=== PATIENT | female | born 1965 | race African-American/Black ===

== ENCOUNTER 2016-11-29 09:25 | Outpatient (CLI) | payer MEDICARE, OTHER ==
[2016-05-31 13:29] VITALS: BP 132/59
[2016-11-29 10:18] LABS: eGFR (African) > 60; eGFR (Non-African) > 60
== END 2016-11-29 09:35 ==
LOC: LAB 09:25
DX: Z79.899 Other long term (current) drug therapy (principal)
CPT/HCPCS: 36415; 80048; 80178; 84443

== ENCOUNTER 2016-12-19 10:52 | Outpatient (CLI) | payer MEDICARE, OTHER ==
[2016-05-31 13:29] VITALS: BP 132/59
== END 2016-12-19 10:53 ==
LOC: LAB 10:52
PROVIDERS: ATTEND Nurse Practitioner Family
DX: M10.9 Gout, unspecified (principal)
CPT/HCPCS: 36415; 84550

== ENCOUNTER 2017-01-19 09:51 | Emergency (ER) | payer MEDICARE, OTHER ==
[2017-01-19] MEDS ORDERED: KETOROLAC TROMETHAMINE 30 MG/1ML VIAL IVP ONE (10:27)
[2017-01-19] MEDS ORDERED: METOCLOPRAMIDE HCL 5 MG TABLET PO ONE (10:53)
[2017-01-19] MEDS ORDERED: HYOSCYAMINE SULFATE 0.125 MG TAB.SUBL SL ONE (10:55)
[2017-01-19] MEDS ORDERED: [UNRECOGNIZED DRUG - OTHER] PO ONE ×3 (10:56)
[2017-01-19] MEDS ORDERED: LIDOCAINE PO ONE ×3 (10:56)
[2017-01-19] MEDS ORDERED: MAGNESIUM HYDROXIDE PO ONE ×3 (10:56)
[2017-01-19] MEDS ORDERED: AL HYDROX PO ONE ×3 (10:56)
[2017-01-19] MEDS ORDERED: Lidocaine 2%Visc 15ml 20 MG/ML UDC ONE (10:59)
[2017-01-19] MEDS ORDERED: MAGNESIUM HYDROXIDE/AL HYDROX 30 ML UDC PO ONE (10:59)
[2017-01-19] MEDS ORDERED: diphenhydrAMINE HCL 25 MG TABLET PO ONE (11:01)
[2017-01-19 12:51] VITALS: BP 128/58
--- NOTE | 2017-01-19 13:24 | ED Physician Documentation ---
General Adult - HISTORIAN Historian: patient - HPI Stated Complaint: Sore Throat Chief Complaint: General Adult Additional Information: Had EGD 2 days ago. Ate a ham sandwich yesterday and feels like it's still stuck in her throat. Eating and drinking normally. No vomiting. No gagging. Onset: days ago (1) Timing: still present Severity: mild Modifying Factors: none Context: ate a ham sandwich Quality: moderate to patient but eating and drinking, no distress Location: throat Further Comments: no Last known Well Date: 01/16/17 Last Known Well Time: 00:00 - ROS CONST: no problems EYES/ENT: other (perceived feeling of something in throat) CVS/RESP: none GI/: none MS/SKIN/LYMPH: none NEURO/PSYCH: denies: headache, fainting, dizziness, tingling, numbness, difficulty walking, difficulty with speech, anxiety, depression - PAST HX Past History: other (pud, diverticulosis) Surgeries/Procedures: other (recent EGD and colonoscopy) Immunizations: referred to PCP Allergies/Adverse Reactions: Allergies Allergy/AdvReac Type Severity Reaction Status Date / Time Iodinated Contrast Media - Allergy Intermediate Face Verified 01/19/17 10:11 IV Dye Swelling [IV Dye, Iodine Containing Contrast ] Home Medications: Ambulatory Orders Medication Instructions Recorded Cholecalciferol [Vitamin D] 1,000 unit PO QD 03/01/14 Duloxetine HCl [Cymbalta] 60 mg PO AM 03/01/14 Fluticasone/Salmeterol [Advair 1 each INH BID 03/01/14 250-50 Diskus] Lamotrigine [Lamictal] 200 mg PO BID 03/01/14 [place] Carbonate [Lithobid] 300 mg PO HS 03/01/14 Metformin HCl [Glucophage] [place] [address] 03/01/14 Quetiapine Fumarate [Seroquel] 600 mg PO HS 03/01/14 Ranitidine HCl [Zantac] 150 mg PO BID 03/01/14 Albuterol Sulfate [Ventolin] 2.5 mg NEB Q6H 01/19/17 DULoxetine HCL [Cymbalta] 30 mg PO HS 01/19/17 Docusate Sodium [Colace] 100 mg PO BID 01/19/17 Omeprazole [Prilosec] 20 mg PO DAILY 01/19/17 Prochlorperazine Maleate 10 mg PO Q6H PRN 01/19/17 [Compazine] - SOCIAL HX Smoking History: non-smoker Alcohol Use: none Drug Use: none - FAMILY HX Family History: No - VITAL SIGNS Vital Signs: Vital Signs Temp Pulse Resp BP Pulse Ox 98.1 F 72 16 128/58 99 01/19/17 09:51 01/19/17 12:35 01/19/17 12:35 01/19/17 12:35 01/19/17 12:35 - REVIEWED ASSESSMENTS Nursing Assessment Reviewed: Yes Vitals Reviewed: Yes Progress - Results/Orders Results/Orders: ct soft tissue neck ordered - Progress Progress: pt. given 30 mg toradol, .25 mg hyoscyamine p.o., reglan 10 mg p.o. and 15 cc of magic mouthwash given in er. Critical Care Note - Critical Care Note Total Time (mins): 0 ED Results Lab/Radiology - Lab Results Lab Results: none ordered - Radiology Radiology Impressions: ct neck neg for foreign body - Orders Orders: ED Orders Category Date Time Status Place Saline Lock/IV Now Care 01/19/17 10:[address] NECK SOFT TISSUE W/ CON Stat Exams 01/19/17 Ordered Hyoscyamine Sulfate [Oscimin Sl] Med 01/19/17 10:55 Discontinued 0.25 mg SL NOW ONE Ketorolac Tromethamine [Toradol] Med 01/19/17 10:27 Discontinued 30 mg IVP NOW ONE Lidocaine 2%Visc 15ml [Xylocaine] Med 01/19/17 10:59 Discontinued 300 mg .ROUTE .STK-MED ONE Magnesium Hydroxide/Al Hydrox [Maalox] Med 01/19/17 10:59 Discontinued 30 ml PO .STK-MED ONE Magnesium Hydroxide/Al Hydrox [Maalox] 40 ml Med 01/19/17 10:56 Ordered Lidocaine 2%Visc 15ml [Xylocaine] 800 mg diphenhydrAMINE SOLUTION [Benadryl] 100 mg PO 1T Metoclopramide HCl [Reglan] Med 01/19/17 10:53 Discontinued 10 mg PO NOW ONE diphenhydrAMINE HCL [Benadryl] Med 01/19/17 11:01 Discontinued 100 mg PO .STK-MED ONE General Adult Physical Exam - PHYSICAL EXAM GENERAL APPEARANCE: no distress EENT: eye inspection normal, ENT inspection normal, pharynx normal, no signs of dehydration, QUE, no nystagmus, TM's nml NECK: normal inspection, thyroid normal, supple RESPIRATORY: no resp distress, chest non-tender, breath sounds normal CVS: reg rate & rhythm, heart sounds normal, equal pulses, no murmur, no gallop , PMI nml, no JVD, no friction rub ABDOMEN: soft, no organomegaly, normal bowel sounds, no abdominal bruit, no distension, non-tender BACK: normal inspection, no CVA tenderness SKIN: warm/dry, normal color EXTREMITIES: non-tender, normal range of motion, no evidence of injury, no edema NEURO: oriented X3, CN's nml as tested, motor nml, sensation nml, mood/affect nml, cognition normal Discharge Clincal Impression: Laryngospasm Referrals: ZION HAIR FNP [Primary Care Provider] - 2 Days Home Medications: Ambulatory Orders Cholecalciferol [Vitamin D] 1,000 unit PO QD 03/01/14 Duloxetine HCl [Cymbalta] 60 mg PO AM 03/01/14 Fluticasone/Salmeterol [Advair 250-50 Diskus] 1 each INH BID 03/01/14 Lamotrigine [Lamictal] 200 mg PO BID 03/01/14 [place] Carbonate [Lithobid] 300 mg PO HS 03/01/14 Metformin HCl [Glucophage] [place] [id number] 03/01/14 Quetiapine Fumarate [Seroquel] 600 mg PO HS 03/01/14 Ranitidine HCl [Zantac] 150 mg PO BID 03/01/14 Albuterol Sulfate [Ventolin] 2.5 mg NEB Q6H 01/19/17 DULoxetine HCL [Cymbalta] 30 mg PO HS 01/19/17 Docusate Sodium [Colace] 100 mg PO BID 01/19/17 Omeprazole [Prilosec] 20 mg PO DAILY 01/19/17 Prochlorperazine Maleate [Compazine] 10 mg PO Q6H PRN 01/19/17 Comments: discharged with scripts for tylenol #3 elixir 2 tsp qid prn pain and hyoscyamine 1 pill qid #10 Condition: Stable Disposition: 01 HOME, SELF-CARE Decision to Admit: NO Decision Time: 12:30
--- NOTE | 2017-01-20 01:31 | Diagnostic Imaging Report ---
Name: ISAAC ORONA ~~ ~~ : 65 ~~ Acc #: [id number]~~ DOS: Jan 19, 2017 11:19:48 AM CDT ~~ Mod: CT\SR ~~ Desc: CT STN W/O 1 of ~ [facility] [address] [facility] [address] [place] [address]. [id number] ~ ~ ~ ~ Report Submission Date: Jan 19, 2017 12:13:58 PM CDT Patient ~ Study Name: ISAAC ORONA ~ Date: Jan 19, 2017 11:19:48 AM CDT ~ Modality Type: CT\SR Gender: F ~ Description: CT STN W/O : 65 ~ Institution: [facility] Physician NICO HUNT ~ ~ ~ CT soft tissue neck without contrast Clinical history foreign body dysphagia TECHNIQUE: ~ Helical axial CT through the neck with multiplanar reconstructions without contrast FINDINGS: ~ The visualized nasopharynx oropharynx and hypopharynx are unremarkable. ~ Multiple small cervical lymph nodes are present. ~There is a port in the right chest wall. ~No laryngeal or proximal tracheal lesions are seen. IMPRESSION: ~ No acute soft tissue neck lesion Multiple lymph nodes are identified but none appear larger than on cm No foreign body identified Port in the right chest wall ~ Electronically signed on Jan 19, 2017 12:13:58 PM CDT by: Ghulam GALLARDO
== END 2017-01-19 12:35 | disposition home or self-care (01) ==
LOC: ED 09:51
DX: J38.5 Laryngeal spasm (principal)
CPT/HCPCS: 70491; A9270; J1885; Q0163; 96374; 99283; S1016

== ENCOUNTER 2017-03-01 09:10 | Outpatient (CLI) | payer MEDICARE, OTHER ==
[2017-03-01 10:09] LABS: eGFR (African) > 60; eGFR (Non-African) > 60
== END 2017-03-01 09:11 ==
LOC: LAB 09:10
PROVIDERS: ATTEND Psychiatry & Neurology Psychiatry
DX: Z51.81 Encounter for therapeutic drug level monitoring (principal); Z79.899 Other long term (current) drug therapy
CPT/HCPCS: 36415; 80053; 80178; 84443

== ENCOUNTER 2017-12-04 11:03 | Outpatient (CLI) | payer MEDICARE, OTHER ==
[2017-12-04 11:56] LABS: eGFR (African) > 60; eGFR (Non-African) > 60
== END 2017-12-04 11:04 ==
LOC: LAB 11:03
PROVIDERS: ATTEND Psychiatry & Neurology Psychiatry
DX: Z79.899 Other long term (current) drug therapy (principal)
CPT/HCPCS: 36415; 80048; 80061; 80178; 83036; 84443

== ENCOUNTER 2018-09-02 09:30 | Emergency (ER) | payer MEDICARE, OTHER ==
--- NOTE | 2018-09-02 09:41 | ED Physician Documentation ---
Female Urogenital Problems - HISTORIAN Historian: patient - HPI Stated Complaint: vaginal itching Chief Complaint: Female Urogenital Problems Onset: days ago (5) Severity: mild Location of Pain: other (vaginal itching ) Further Comments: yes (she has had vaginal itching and white discharge for 5 days. She denies any new sexual partners. No vaginal pain. No odor) - Vaginal Bleeding Sexual History: active Contraceptive: none - Associated Symptoms Urinary Symptoms: denies: discomfort w/ urination Discharge: other (white ) - ROS CONST: none GI/: denies: nausea, vomiting NEURO/PSYCH: denies: headache MS/SKIN/LYMPH: denies: rash - PAST HX Past History: other (DM type 2 - she does not treat, asthma, gout, hx of breast cancer ) Immunizations: UTD Allergies/Adverse Reactions: Allergies Allergy/AdvReac Type Severity Reaction Status Date / Time Iodinated Contrast- Oral and Allergy Intermediate Face Verified 09/02/18 09:58 IV Dye Swelling [IV Dye, Iodine Containing Contrast ] Home Medications: Ambulatory Orders Medication Instructions Recorded Cholecalciferol [Vitamin D] 1,000 unit PO QD 03/01/14 Duloxetine HCl [Cymbalta] 60 mg PO AM 03/01/14 Fluticasone/Salmeterol [Advair 1 each INH BID 03/01/14 250-50 Diskus] Lamotrigine [Lamictal] 200 mg PO BID 03/01/14 [place] Carbonate [Lithobid] 300 mg PO HS 03/01/14 Metformin HCl [Glucophage] [address] [place] [id number] 03/01/14 Quetiapine Fumarate [Seroquel] 600 mg PO HS 03/01/14 Ranitidine HCl [Zantac] 150 mg PO BID 03/01/14 Albuterol Sulfate [Ventolin] 2.5 mg NEB Q6H 01/19/17 DULoxetine HCL [Cymbalta] 30 mg PO HS 01/19/17 Docusate Sodium [Colace] 100 mg PO BID 01/19/17 Omeprazole [Prilosec] 20 mg PO DAILY 01/19/17 Prochlorperazine Maleate 10 mg PO Q6H PRN 01/19/17 [Compazine] - SOCIAL HX Smoking History: cigarettes Alcohol Use: none Drug Use: none - FAMILY HX Family History: none - VITAL SIGNS Vital Signs: Vital Signs Temp Pulse Resp BP Pulse Ox 128/58 01/19/17 12:35 - REVIEWED ASSESSMENTS Nursing Assessment Reviewed: Yes Vitals Reviewed: Yes Female Urogenital Problems - EXAM General Appearance: no acute distress, alert EENT: eye inspection normal Neck: nml inspection Respiratory: no resp. distress, breath sounds nml CVS: reg rate & rhythm, heart sounds normal, equal pulses Abdomen: soft, non-tender, no distention Pelvic: external exam nml, vaginal discharge, mild (white thick discharge - no odor ) Back: non-tender Skin: color nml, no rash, warm,dry Extremities: non-tender Neuro: oriented X3, CN's nml as tested, motor nml, sensation nml, mood/affect nml Discharge Clincal Impression: Susan infection Referrals: ZION HAIR FNP [Primary Care Provider] - 2 Days Comments: 1. Diflucan 150 mg take 1 by mouth today and repeat in 3 days 2. SEE YOUR PCP to discuss your diabetes 3. No baths 4. Return to ER for any concerns Condition: Stable Disposition: 01 HOME, SELF-CARE Decision to Admit: NO Date of Decison to Admit: 09/02/18 Decision Time: 10:16
[2018-09-02 10:25] VITALS: BP 140/88
== END 2018-09-02 10:24 | disposition home or self-care (01) ==
LOC: ED 09:30
DX: B37.9 Candidiasis, unspecified (principal)
CPT/HCPCS: 99283

== ENCOUNTER 2019-04-14 15:15 | Emergency (ER) | payer MEDICARE, OTHER ==
[~2019-04-14 15:15] MED LIST: KETOROLAC TROMETHAMINE 60 MG/2 ML VIAL IM ONE; ONDANSETRON HCL 4 MG TAB.RAPDIS ONE
--- NOTE | 2019-05-02 10:49 | Diagnostic Imaging Report ---
ORTEGA LAND [facility] [address] [facility] [address] [place], [place]. [address] Report Submission Date: Apr 14, 2019 3:52:46 PM CDT Patient Study Name: ISAAC ORONA Date: Apr 14, 2019 3:21:36 PM CDT Modality Type: DX\KO Gender: F Description: KNEE 3 VIEWS : 65 Institution: [facility] Physician: ORTEGA LAND Exam: Bilateral knees. History: Pain. AP, lateral and sunrise views of both knees are submitted. Orthopedic device is replaced both knee joints. No signs of acute fracture or dislocation is seen. No bony erosions are seen. No soft tissue abnormalities identified. Impression: Orthopedic devices replaced both knee joint. No acute fracture. Electronically signed on Apr 14, 2019 3:52:46 PM CDT by: Hilario GALLARDO
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
== END 2019-04-14 16:12 | disposition home or self-care (01) ==
LOC: ED 15:15
DX: R51 Headache (principal); M25.561 Pain in right knee; M25.562 Pain in left knee; V43.52XA Car driver injured in collision with other type car in traffic accident, initial encounter; Y93.89 Activity, other specified; Y92.410 Unspecified street and highway as the place of occurrence of the external cause
CPT/HCPCS: 70450; 96372; 99283; 99284; J1885; A9270